=== PATIENT | male | born 1945 | race Native Hawaiian/Other Pacific Islander ===

== ENCOUNTER 2022-06-01 19:58 | Emergency (ER) | payer OTHER ==
[~2022-06-01] VITALS: Ht 152.4 cm; Wt 68.9 kg
[2022-06-01 20:05] VITALS: TEMP 98.9
[2022-06-01 20:25] LABS: PLATELET COUNT 374 K/uL (142-355)
[2022-06-01 20:41] LABS: POTASSIUM 3.8 mmol/L (3.6-5.2)
[2022-06-01 21:44] VITALS: BP 149/87
[2022-06-02] MEDS ORDERED: LORA2INJ21 INJ (08:57)
[2022-06-02] MEDS ORDERED: TAMS0.4C PO (08:58)
[2022-06-02] MEDS ORDERED: PEPCID20 MG PO (08:58)
[2022-06-02] MEDS ORDERED: LEVE500T5 PO (08:59)
[2022-06-02] MEDS ORDERED: KEPPRA1000 MG PO (09:00)
[2022-06-02] MEDS ORDERED: LISI10TA11 PO (09:00)
[2022-06-02] MEDS ORDERED: MECLIZINE25 MG PO (09:01)
[2022-06-02] MEDS ORDERED: ONDANSETRON4 M2 PO (09:02)
[2022-06-02] MEDS ORDERED: PRAVASTATIN PO (09:03)
[2022-06-02] MEDS ORDERED: VITAMIN D1000 UNI1 PO (09:03)
== END 2022-06-01 21:45 | disposition still patient (30) ==
LOC: ED 19:58
PROVIDERS: Emergency Medicine
DX: F03.911 Unspecified dementia, unspecified severity, with agitation (principal); Z11.52 Encounter for screening for COVID-19; Z04.6 Encounter for general psychiatric examination, requested by authority
CPT/HCPCS: 36415; 80053; 81002; 85027; 87635; 93005; 99283; U0003